=== PATIENT | female | born 1970 | race Caucasian/White ===

== ENCOUNTER 2016-08-01 12:13 | Day surgery (SDC) | payer BC ==
[~2016-08-01 12:13] MED LIST: AMITRIPTYLINE H25 M1 PO; KEFLEX500 M4 PO; TOPAMAX25 M3 PO; VITAMIN D31000 UNI3 PO; WELLBUTRIN XL150 M1 PO
[2016-08-01 15:08] LABS: CSF APPEARANCE CLEAR (CLEAR); CSF COLOR COLORLESS (COLORLESS); CSF RBC CT 1 cmm (0); CSF TUBE NUMBER CSF TUBE 3; CSF WBC CT 1 cmm (0-10)
[2016-08-01 15:23] LABS: CSF GLUCOSE 52 mg/dl (40-75)
== END 2016-08-01 16:40 ==
LOC: SHSB 12:13
PROVIDERS: Psychiatry & Neurology Neurology
PROC: 009U3ZX Drainage of Spinal Canal, Percutaneous Approach, Diagnostic (ICD-10-PCS; principal; 2016-08-01)
PROC: B01BZZZ Fluoroscopy of Spinal Cord (ICD-10-PCS; 2016-08-01)
DX: R53.83 Other fatigue (principal); H53.2 Diplopia; M62.838 Other muscle spasm; E66.9 Obesity, unspecified; G43.909 Migraine, unspecified, not intractable, without status migrainosus; Z79.2 Long term (current) use of antibiotics; Z79.899 Other long term (current) drug therapy; Z90.49 Acquired absence of other specified parts of digestive tract; Z98.51 Tubal ligation status; Z90.721 Acquired absence of ovaries, unilateral; Z98.890 Other specified postprocedural states
CPT/HCPCS: J7030